=== PATIENT | male | born 1955 | race Caucasian/White ===

== ENCOUNTER 2017-08-05 13:00 | Emergency (ER) | payer OTHER ==
[2017-08-05] MEDS ORDERED: ASPIRIN 81 MG CHEWABLE CTB PO ONE (13:06)
[2017-08-05] MEDS ORDERED: NITROGLYCERIN 0.4 MG TAB SL ONE (13:06)
[2017-08-05] MEDS ORDERED: ASPIRIN 81 MG CHEWABLE CTB ONE (13:06)
[2017-08-05 13:20] VITALS: TEMP 98.1
[2017-08-05 13:22] LABS: BASOPHILS % (AUTO) 1 % (0-3); EOSINOPHILS % (AUTO) 2 % (0-9); HEMATOCRIT 47 % (39-53); MEAN CORPUSCULAR HGB CONC 35.1 gm/dl (32.0-36.0); MEAN CORPUSCULAR VOLUME 88 fL (80-100); MONOCYTES % (AUTO) 7.8 % (0-12); NEUTROPHILS % (AUTO) 55.8 % (37-80)
[2017-08-05 13:36] LABS: ALBUMIN 4.2 gm/dl (3.4-5.0); ALT 26 IU/L (14-63); CALCIUM 9.4 mg/dl (8.5-10.1); GLOM FILT RATE 47 mL/min (>60); POTASSIUM 4.4 mMol/L (3.5-5.1); SODIUM 138 mMol/L (136-145)
[2017-08-05 15:23] VITALS: BP 119/76; PULSE 46; RESP 20; O2SAT 97
== END 2017-08-05 14:53 | disposition home or self-care (01) | DRG 313 ==
LOC: ED 13:00
DX: R07.89 Other chest pain (principal)
CPT/HCPCS: 36415; 71010; 80053; 80061; 84484; 85025; 93005; 99284